=== PATIENT | female | born 1945 | race Two or more races ===

== ENCOUNTER 2023-05-21 09:02 | Emergency (ER) | payer OTHER ==
[~2023-05-21] VITALS: Ht 152.4 cm; Wt 70.0 kg
[2023-05-21 09:34] VITALS: BP 162/84; PULSE 77; RESP 12; TEMP 97.8; O2SAT 97
[2023-05-21] MEDS: LACTULOSE 20Gm/30ML SOLN PO ONE (10:34)
[2023-05-21 10:59] LABS: Urine Bacteria NONE SEEN /hpf (None Seen); Urine Blood Negative /uL (Negative); Urine Clarity Clear (Clear); Urine Color Colorless (Yellow); Urine Protein, UAD Negative (Negative); Urine Specific Gravity 1.017 (1.001-1.035); Urine Urobilinogen Normal (Negative); Urine WBC <1 /hpf (0 - 5)
[2023-05-21 11:30] LABS: Basophils # (auto) 0.1 10 ^3/uL (0-0.2); Basophils % (auto) 1.3 % (0.0-2.0); Eosinophils # (auto) 0.3 10 ^3/uL (0-0.8); Eosinophils % (auto) 5.5 % (0.0-7.0); Hematocrit 27.9 % (36.0-46.0); Hemoglobin 9.1 g/dL (12.2-16.2); Lymphocytes # (auto) 1.7 10 ^3/uL (0.4-5.4); Lymphocytes % (auto) 34.5 % (10.0-50.0); Mean Corpuscular Hgb Conc. 32.5 g/dL (32.0-36.0); Mean Corpuscular Volume 95.4 fL (80.0-100.0); Monocytes # (auto) 0.3 10 ^3/uL (0-1.3); Monocytes % (auto) 6.9 % (0.0-12.0); Neutrophils # (auto) 2.5 10 ^3/uL (1.6-8.6); Neutrophils % (auto) 51.8 % (37.0-80.0); Nucleated Red Blood Cells % 0.1 %; Red Blood Cells 2.92 10^6/uL (4.0-5.20); Red Cell Distribution Width 14.6 % (11.8-14.3); White Blood Cell 4.8 10^3/uL (4.4-10.8)
[2023-05-21 12:01] LABS: Alanine Aminotransferase 10 U/L (7-40); Albumin 3.6 g/dL (3.2-4.8); Alkaline Phosphatase 56 U/L (46-116); Anion Gap 10 (5-15); Aspartate Aminotransferase 14 U/L (13-40); BUN/Creatinine Ratio 11.1 (10.0-20.0); Bilirubin, Total 0.2 mg/dL (0.2-1.0); Blood Urea Nitrogen 29 mg/dL (9-23); Calcium 8.8 mg/dL (8.7-10.4); Carbon Dioxide 21 mmol/L (20-30); Chloride 108 mmol/L (98-107); Glucose 152 mg/dL (74-106); Lipase 27 U/L (12-53); Potassium 3.8 mmol/L (3.5-5.1); Sodium 139 mmol/L (136-145); Total Protein 6.6 g/dL (5.7-8.2)
[2023-05-21] MEDS ORDERED: LACT10SO3 PO (12:15)
[2023-05-21] MEDS ORDERED: AMOX875T3 PO (12:15)
== END 2023-05-21 12:25 | disposition home or self-care (01) ==
LOC: ER 09:02
DX: K80.20 Calculus of gallbladder without cholecystitis without obstruction (principal); K59.00 Constipation, unspecified; E11.9 Type 2 diabetes mellitus without complications; E78.5 Hyperlipidemia, unspecified
CPT/HCPCS: 36415; 74176; 80053; 81001; 83690; 85025

== ENCOUNTER 2023-07-23 02:32 | Emergency (ER) | payer OTHER ==
[~2023-07-23] VITALS: Ht 165.1 cm; Wt 79.5 kg
[~2023-07-23 02:32] MED LIST: AMOX875T3 PO; LACT10SO3 PO
[2023-07-23 03:34] LABS: Basophils # (auto) 0.1 10 ^3/uL (0-0.2); Basophils % (auto) 1.2 % (0.0-2.0); Eosinophils # (auto) 0.2 10 ^3/uL (0-0.8); Eosinophils % (auto) 2.9 % (0.0-7.0); Hematocrit 27.8 % (36.0-46.0); Lymphocytes # (auto) 2.4 10 ^3/uL (0.4-5.4); Lymphocytes % (auto) 41.4 % (10.0-50.0); Mean Corpuscular Hemoglobin 30.6 pg (28.0-32.0); Mean Corpuscular Hgb Conc. 32.5 g/dL (32.0-36.0); Mean Corpuscular Volume 93.9 fL (80.0-100.0); Monocytes # (auto) 0.4 10 ^3/uL (0-1.3); Monocytes % (auto) 6.8 % (0.0-12.0); Neutrophils # (auto) 2.8 10 ^3/uL (1.6-8.6); Neutrophils % (auto) 47.7 % (37.0-80.0); Red Blood Cells 2.96 10^6/uL (4.0-5.20); Red Cell Distribution Width 14.5 % (11.8-14.3); White Blood Cell 5.8 10^3/uL (4.4-10.8)
[2023-07-23 03:35] LABS: Alanine Aminotransferase 12 U/L (7-40); Albumin 3.8 g/dL (3.2-4.8); Alkaline Phosphatase 71 U/L (46-116); Anion Gap 6 (5-15); Aspartate Aminotransferase 13 U/L (13-40); BUN/Creatinine Ratio 18.3 (10.0-20.0); Bilirubin, Total 0.2 mg/dL (0.2-1.0); Blood Urea Nitrogen 60 mg/dL (9-23); Calcium 9.4 mg/dL (8.7-10.4); Carbon Dioxide 20 mmol/L (20-30); Chloride 98 mmol/L (98-107); Glucose 120 mg/dL (74-106); Potassium 5.3 mmol/L (3.5-5.1); Sodium 124 mmol/L (136-145); Total Protein 7.2 g/dL (5.7-8.2)
[2023-07-23] MEDS: HYDROcodone-ACET 5/325MG TAB PO ONE (03:36)
[2023-07-23 03:55] LABS: Urine Bacteria FEW /hpf (None Seen); Urine Blood 1+ /uL (Negative); Urine Clarity Clear (Clear); Urine Color Colorless (Yellow); Urine Protein, UAD TRACE (Negative); Urine Specific Gravity 1.008 (1.001-1.035); Urine Urobilinogen Normal (Negative); Urine WBC 33 /hpf (0 - 5); Urine WBC Clumps PRESENT /hpf (None Seen)
[2023-07-23] MEDS ORDERED: CIPR-173 PO (08:05)
[2023-07-23] MEDS ORDERED: TRAM50TA2 PO (08:05)
[2023-07-23] MEDS: TAMSULOSIN HYDROCHLORIDE 0.4 MG CAP PO ONE (09:17)
[2023-07-23] MEDS: ONDANSETRON HCL 4 MG/2 ML VIAL IM ONE (09:22)
[2023-07-23] MEDS: HYDROmorphone HCL 2 MG/ML VL/or syr IM ONE (09:23)
[2023-07-23 09:24] VITALS: TEMP 98; O2SAT 98
[2023-07-23 09:50] VITALS: BP 171/84; PULSE 75; RESP 18
== END 2023-07-23 10:16 | disposition home or self-care (01) ==
LOC: ER 02:32
DX: N20.1 Calculus of ureter (principal); I12.9 Hypertensive chronic kidney disease with stage 1 through stage 4 chronic kidney disease, or unspecified chronic kidney disease; E11.22 Type 2 diabetes mellitus with diabetic chronic kidney disease; N18.4 Chronic kidney disease, stage 4 (severe); D63.8 Anemia in other chronic diseases classified elsewhere; E87.1 Hypo-osmolality and hyponatremia; N39.0 Urinary tract infection, site not specified; I25.810 Atherosclerosis of coronary artery bypass graft(s) without angina pectoris; E78.5 Hyperlipidemia, unspecified; Z98.61 Coronary angioplasty status; Z79.899 Other long term (current) drug therapy; Z95.0 Presence of cardiac pacemaker
CPT/HCPCS: 36415; 74176; 80053; 81001; 85025; 96372; 99285; J1170; J2405

== ENCOUNTER 2023-07-28 12:08 | Inpatient (IN) | payer OTHER ==
[~2023-07-28] VITALS: Ht 165.1 cm; Wt 76.0 kg
[~2023-07-28 12:08] MED LIST changes: +CIPR-173 PO; +TRAM50TA2 PO
[2023-07-28 13:45] LABS: Basophils # (auto) 0 10 ^3/uL (0-0.2); Basophils % (auto) 0.4 % (0.0-2.0); Eosinophils # (auto) 0.2 10 ^3/uL (0-0.8); Eosinophils % (auto) 4.8 % (0.0-7.0); Hematocrit 26.1 % (36.0-46.0); Hemoglobin 8.6 g/dL (12.2-16.2); Lymphocytes # (auto) 1.5 10 ^3/uL (0.4-5.4); Lymphocytes % (auto) 30.3 % (10.0-50.0); Mean Corpuscular Hemoglobin 30.8 pg (28.0-32.0); Mean Corpuscular Hgb Conc. 33.1 g/dL (32.0-36.0); Monocytes # (auto) 0.4 10 ^3/uL (0-1.3); Monocytes % (auto) 7.7 % (0.0-12.0); Neutrophils # (auto) 2.8 10 ^3/uL (1.6-8.6); Neutrophils % (auto) 56.8 % (37.0-80.0); Nucleated Red Blood Cells % 0.1 %; Red Blood Cells 2.81 10^6/uL (4.0-5.20); Red Cell Distribution Width 13.7 % (11.8-14.3); White Blood Cell 4.9 10^3/uL (4.4-10.8)
[2023-07-28 14:05] LABS: Alanine Aminotransferase 12 U/L (7-40); Albumin 3.8 g/dL (3.2-4.8); Alkaline Phosphatase 71 U/L (46-116); Anion Gap 5 (5-15); Aspartate Aminotransferase 17 U/L (13-40); BUN/Creatinine Ratio 17.9 (10.0-20.0); Blood Urea Nitrogen 71 mg/dL (9-23); Calcium 9.1 mg/dL (8.5-10.1); Carbon Dioxide 23 mmol/L (20-30); Chloride 104 mmol/L (98-107); Glucose 187 mg/dL (74-106); Potassium 5.2 mmol/L (3.5-5.1)
[2023-07-28 14:06] LABS: Bilirubin, Total 0.2 mg/dL (0.2-1.0); Total Protein 6.6 g/dL (5.7-8.2)
[2023-07-28 14:08] LABS: Sodium 132 mmol/L (136-145)
[2023-07-28] MEDS: SODIUM CHLORIDE 0.9% 1,000 ML IV ONE ×2 (14:25→15:00)
[2023-07-28 16:00] VITALS: PULSE 75; RESP 20; O2SAT 97
[2023-07-28] MEDS ORDERED: DEXTROSE (50%) 50ML SYRG IV PRN (16:15)
[2023-07-28] MEDS ORDERED: ACETAMINOPHEN 325 MG TAB PO PRN (16:15)
[2023-07-28] MEDS ORDERED: DOCUSATE SOD 100 MG CAP PO PRN (16:15)
[2023-07-28] MEDS ORDERED: ONDANSETRON HCL 4 MG/2 ML VIAL IV PRN (16:15)
[2023-07-28 16:18] LABS: Urine Bacteria None Seen /hpf (None Seen)
[2023-07-28 16:23] LABS: Urine Blood 1+ /uL (Negative); Urine Clarity Clear (Clear); Urine Color Light-Yellow (Yellow); Urine Protein, UAD TRACE (Negative); Urine Specific Gravity 1.008 (1.001-1.035); Urine Urobilinogen Normal (Negative); Urine WBC 33 /hpf (0 - 5); Urine pH 6.5 (5.0-9.0)
[2023-07-28] MEDS: SODIUM ZIRCONIUM CYCL 10 GM PAK PO ONE (16:58)
[2023-07-28] MEDS: InsuLIN REG 1unit/0.01ml Soln (100units/ml) SC SCH ×2 (17:00→22:00)
[2023-07-28] MEDS: ACCU-CHEK COMFORT CURVE STRIP VI SCH (17:16)
[2023-07-28] MEDS ORDERED: NITROGLYCERIN 0.4 MG SL TAB SL PRN (18:15)
[2023-07-28] MEDS ORDERED: MORPHINE SULFATE INJ 2 MG/ml SYRG IV PRN (18:15)
[2023-07-28 19:30] VITALS: PULSE 75; RESP 20; O2SAT 97
[2023-07-28] MEDS: SODIUM CHLOR 0.9% PF (SALINE LOCK) 10ML VIAL/SYR IV SCH (22:00)
[2023-07-28] MEDS: HYDROcodone-ACET 5/325MG TAB PO PRN (22:43)
[2023-07-28 23:19] VITALS: BP 177/70; PULSE 70; PULSE 77; RESP 18; TEMP 98; O2SAT 99
[2023-07-28 23:20] VITALS: BP 177/70; PULSE 77; RESP 18; TEMP 98; O2SAT 99
[2023-07-29] VITALS (9 sets, daily range): BP systolic 143–173; BP diastolic 72–88; PULSE 75–77; RESP 17–20; TEMP 97.4–98.9; O2SAT 96–100
[2023-07-29] MEDS: cloNIDine HCL 0.1 MG TAB PO ONE (00:25)
[2023-07-29] MEDS ORDERED: METO25TA93 PO (03:06)
[2023-07-29] MEDS ORDERED: FURO40TA4 PO (03:09)
[2023-07-29] MEDS ORDERED: PIO30T PO (03:09)
[2023-07-29 06:37] LABS: Basophils # (auto) 0 10 ^3/uL (0-0.2); Basophils % (auto) 1.2 % (0.0-2.0); Eosinophils # (auto) 0.3 10 ^3/uL (0-0.8); Hematocrit 26.8 % (36.0-46.0); Hemoglobin 8.7 g/dL (12.2-16.2); Lymphocytes # (auto) 1.3 10 ^3/uL (0.4-5.4); Mean Corpuscular Hemoglobin 30.6 pg (28.0-32.0); Mean Corpuscular Hgb Conc. 32.6 g/dL (32.0-36.0); Mean Corpuscular Volume 93.7 fL (80.0-100.0); Monocytes # (auto) 0.4 10 ^3/uL (0-1.3); Monocytes % (auto) 9.8 % (0.0-12.0); Neutrophils # (auto) 1.9 10 ^3/uL (1.6-8.6); Red Blood Cells 2.86 10^6/uL (4.0-5.20); Red Cell Distribution Width 14.1 % (11.8-14.3); White Blood Cell 3.9 10^3/uL (4.4-10.8)
[2023-07-29 06:58] LABS: Alanine Aminotransferase 11 U/L (7-40); Albumin 3.5 g/dL (3.2-4.8); Alkaline Phosphatase 65 U/L (46-116); Anion Gap 7 (5-15); Aspartate Aminotransferase 14 U/L (13-40); BUN/Creatinine Ratio 18.1 (10.0-20.0); Bilirubin, Total 0.2 mg/dL (0.2-1.0); Calcium 8.8 mg/dL (8.5-10.1); Carbon Dioxide 20 mmol/L (20-30); Chloride 108 mmol/L (98-107); Glucose 146 mg/dL (74-106); Potassium 4.5 mmol/L (3.5-5.1); Sodium 135 mmol/L (136-145)
[2023-07-29 06:59] LABS: Total Protein 6.4 g/dL (5.7-8.2)
[2023-07-29 07:07] LABS: Blood Urea Nitrogen 59 mg/dL (9-23)
[2023-07-29] MEDS: B-COMPLEX W/ C & FOLIC ACID(NEPHROVITE TAB) PO SCH (08:50)
[2023-07-29] MEDS: SODIUM CHLORIDE 0.9% 1,000 ML IV SCH (11:30)
[2023-07-29] MEDS ORDERED: PANT40TA2 PO (16:49)
[2023-07-29] MEDS ORDERED: MET25T PO (16:49)
[2023-07-29] MEDS ORDERED: TRAM50TA2 PO (16:49)
[2023-07-29] MEDS ORDERED: FLUC200T50 PO (16:49)
[2023-07-29] MEDS ORDERED: QUET25TA37 PO (16:49)
[2023-07-29] MEDS ORDERED: PIOG15TA25 PO (16:49)
[2023-07-29] MEDS ORDERED: CIPR500T4 PO (16:49)
[2023-07-29] MEDS ORDERED: FURO1TAB31 PO (16:49)
[2023-07-29] MEDS ORDERED: PRIM50TA5 GT (16:49)
[2023-07-29] MEDS: PANTOPRAZOLE 40 MG TAB PO ONE (16:55)
[2023-07-29] MEDS: SUCRALFATE 1 GM TAB PO SCH (16:55)
[2023-07-29] MEDS: NIFEdipine ER 30 MG TAB PO ONE (16:56)
[2023-07-29] MEDS: hydrALAZINE HCL 20 MG/ML VL IV PRN (22:29)
[2023-07-30] VITALS (8 sets, daily range): BP systolic 98–145; BP diastolic 54–69; PULSE 72–77; RESP 16–19; TEMP 97.4–97.9; O2SAT 97–100
[2023-07-30] MEDS: PANTOPRAZOLE 40 MG TAB PO SCH (06:26)
[2023-07-30 07:36] LABS: Alanine Aminotransferase 13 U/L (7-40); Alkaline Phosphatase 67 U/L (46-116); Anion Gap 9 (5-15); BUN/Creatinine Ratio 19.3 (10.0-20.0); Blood Urea Nitrogen 55 mg/dL (9-23); Carbon Dioxide 20 mmol/L (20-30); Chloride 107 mmol/L (98-107); Glucose 97 mg/dL (74-106); Magnesium 1.9 mg/dL (1.6-2.6); Potassium 4.5 mmol/L (3.5-5.1); Sodium 136 mmol/L (136-145)
[2023-07-30 07:37] LABS: Albumin 3.8 g/dL (3.2-4.8); Aspartate Aminotransferase 18 U/L (13-40)
[2023-07-30 07:38] LABS: Bilirubin, Total 0.2 mg/dL (0.2-1.0); Total Protein 6.6 g/dL (5.7-8.2)
[2023-07-30 07:40] LABS: Basophils # (auto) 0.1 10 ^3/uL (0-0.2); Basophils % (auto) 1.2 % (0.0-2.0); Eosinophils # (auto) 0.3 10 ^3/uL (0-0.8); Eosinophils % (auto) 5.2 % (0.0-7.0); Folate (Folic Acid) 12.14 ng/mL (>5.38); Hematocrit 25.4 % (36.0-46.0); Hemoglobin 8.7 g/dL (12.2-16.2); Lymphocytes # (auto) 0.9 10 ^3/uL (0.4-5.4); Lymphocytes % (auto) 18.9 % (10.0-50.0); Mean Corpuscular Hemoglobin 31.7 pg (28.0-32.0); Mean Corpuscular Hgb Conc. 34.3 g/dL (32.0-36.0); Mean Corpuscular Volume 92.5 fL (80.0-100.0); Monocytes # (auto) 0.3 10 ^3/uL (0-1.3); Monocytes % (auto) 6.7 % (0.0-12.0); Neutrophils # (auto) 3.3 10 ^3/uL (1.6-8.6); Red Blood Cells 2.74 10^6/uL (4.0-5.20); Red Cell Distribution Width 13.9 % (11.8-14.3); White Blood Cell 4.8 10^3/uL (4.4-10.8)
[2023-07-30 09:03] LABS: % Iron Saturation 26.2 % (15-50)
[2023-07-30] MEDS: LACTULOSE 20Gm/30ML SOLN PO ONE (09:45)
[2023-07-30] MEDS: NIFEdipine ER 30 MG TAB PO SCH (09:48)
[2023-07-30] MEDS ORDERED: IRON SUCROSE COMPLEX 100 ML IV SCH (14:15)
[2023-07-30] MEDS: DOCUSATE SOD 100 MG CAP PO SCH (22:18)
[2023-07-31 01:00] VITALS: BP 139/64; PULSE 69; RESP 16; TEMP 97.6; O2SAT 99
[2023-07-31 05:00] VITALS: BP 135/58; PULSE 68; RESP 16; TEMP 98; O2SAT 98
[2023-07-31 05:05] LABS: Basophils # (auto) 0.1 10 ^3/uL (0-0.2); Basophils % (auto) 0.9 % (0.0-2.0); Eosinophils # (auto) 0.3 10 ^3/uL (0-0.8); Hematocrit 26.3 % (36.0-46.0); Hemoglobin 8.6 g/dL (12.2-16.2); Lymphocytes % (auto) 10.7 % (10.0-50.0); Mean Corpuscular Hemoglobin 30.2 pg (28.0-32.0); Mean Corpuscular Hgb Conc. 32.8 g/dL (32.0-36.0); Mean Corpuscular Volume 92.2 fL (80.0-100.0); Monocytes # (auto) 0.5 10 ^3/uL (0-1.3); Monocytes % (auto) 5.5 % (0.0-12.0); Neutrophils # (auto) 7.8 10 ^3/uL (1.6-8.6); Neutrophils % (auto) 79.9 % (37.0-80.0); Nucleated Red Blood Cells % 0.1 %; Red Blood Cells 2.85 10^6/uL (4.0-5.20); Red Cell Distribution Width 14.1 % (11.8-14.3); White Blood Cell 9.7 10^3/uL (4.4-10.8)
[2023-07-31 05:17] LABS: Chloride 108 mmol/L (98-107); Potassium 5.2 mmol/L (3.5-5.1); Sodium 135 mmol/L (136-145)
[2023-07-31 05:18] LABS: Anion Gap 8 (5-15); Carbon Dioxide 19 mmol/L (20-30)
[2023-07-31 05:23] LABS: BUN/Creatinine Ratio 17.1 (10.0-20.0); Blood Urea Nitrogen 47 mg/dL (9-23); Glucose 91 mg/dL (74-106)
[2023-07-31 08:00] VITALS: PULSE 75; RESP 16; O2SAT 99
[2023-07-31] MEDS: LACTULOSE 20Gm/30ML SOLN PO SCH (11:13)
[2023-07-31] MEDS: SODIUM FERR GLUC 62.5MG/5ML 125 MG in SODIUM CHL 0.9% 100 ML IV SCH (12:41)
[2023-07-31] MEDS ORDERED: SUCR1TAB31 OR (13:28)
[2023-07-31] MEDS ORDERED: PANT40TA2 PO (13:28)
[2023-07-31 13:30] VITALS: BP 151/58; PULSE 78; RESP 16; TEMP 97.4; O2SAT 99
[2023-07-31 16:30] VITALS: BP 134/65; PULSE 80; RESP 17; TEMP 98; O2SAT 100
[2023-07-31 17:28] VITALS: BP 136/74; PULSE 75; RESP 16; TEMP 97.4; O2SAT 99
== END 2023-07-31 18:30 | disposition home health service (06) | DRG 811 ==
LOC: ER 12:08 → TELE 18:02 → TELE-WESTW 23:18
PROVIDERS: ADMIT Nurse Practitioner Family; ATTEND Internal Medicine Geriatric Medicine
DX: D64.9 Anemia, unspecified (principal); N17.0 Acute kidney failure with tubular necrosis; R64 Cachexia; E87.1 Hypo-osmolality and hyponatremia; D63.1 Anemia in chronic kidney disease; E11.65 Type 2 diabetes mellitus with hyperglycemia; E11.22 Type 2 diabetes mellitus with diabetic chronic kidney disease; I12.9 Hypertensive chronic kidney disease with stage 1 through stage 4 chronic kidney disease, or unspecified chronic kidney disease; K59.00 Constipation, unspecified; E78.5 Hyperlipidemia, unspecified; E87.5 Hyperkalemia; Z68.27 Body mass index [BMI] 27.0-27.9, adult; Z95.1 Presence of aortocoronary bypass graft; Z83.3 Family history of diabetes mellitus; N18.30 Chronic kidney disease, stage 3 unspecified; Z79.84 Long term (current) use of oral hypoglycemic drugs
CPT/HCPCS: 36415; 70450; 71045; 74176; 76775; 80048; 80053; 81001; 82607; 82746; 82962; 83540; 83550; 83735; 84443; 84484; 85025; 86850; 86900; 86901; 96361; 96374; 97163; G0378; J1815